=== PATIENT | male | born 1960 | race Caucasian/White ===

== ENCOUNTER 2019-04-18 05:53 | Emergency (ER) | payer MEDICARE, OTHER ==
[~2019-04-18] VITALS: Ht 152.4 cm; Wt 61.2 kg
[~2019-04-18 05:53] MED LIST: ACET-1156 GT; ASCO500T11 GT; CARV6.2551 PO; CRAN425C2 GT; FER300LQ GT; FLUC200T50 IVB; LACT1CAP14 GT; LEVO50TA7 GT; MERO1INJ IV; MID10T GT; MULTTAB61 GT; ONDA-144 GT; POLY33504 GT; SENN8.6C GT; TAMS0.4C36 GT; TRAM50TA2 PO; ZINC220C8 GT; [UNRECOGNIZED DRUG - OTHER] IV
[2019-04-18] MEDS ORDERED: SODIUM CHLORIDE 0.9% 1,000 ML IV ONE (07:07)
[2019-04-18] MEDS ORDERED: SODIUM CHLORIDE 0.9% 500 ML IVB ONE (07:07)
[2019-04-18 07:27] LABS: Urine Bacteria FEW /hpf (None Seen); Urine Blood 2+ /uL (Negative); Urine Mucus FEW (None Seen); Urine Specific Gravity 1.015 (1.001-1.035); Urine WBC 312 /hpf (0 - 3); Urine WBC Clumps PRESENT /hpf (None Seen)
[2019-04-18 07:34] LABS: Basophils # (auto) 0.1 uL; Basophils % (auto) 0.9 % (0.0-2.0); Eosinophils # (auto) 0.8 uL; Eosinophils % (auto) 8.3 % (0.0-7.0); Hematocrit 37.9 % (41.0-53.0); Hemoglobin 12.4 g/dL (13.5-17.5); Lymphocytes # (auto) 1.3 uL; Lymphocytes % (auto) 13.4 % (10.0-50.0); Mean Corpuscular Hgb Conc. 32.6 g/dL (32.0-36.0); Mean Corpuscular Volume 88.9 fL (80.0-100.0); Monocytes # (auto) 0.9 uL; Monocytes % (auto) 8.9 % (0.0-12.0); Neutrophils # (auto) 6.6 uL; Neutrophils % (auto) 68.5 % (37.0-80.0); Nucleated Red Blood Cells % 0.1 %; Platelet Count (auto) 136 10^3/uL (140-450); Red Blood Cells 4.27 10^6/uL (4.5-5.90); Red Cell Distribution Width 16.6 % (11.8-14.3); White Blood Cell 9.7 10^3/uL (4.4-10.8)
[2019-04-18 07:48] LABS: Albumin 2.2 g/dL (3.4-5.0); BUN/Creatinine Ratio 25.7; Magnesium 2.8 mg/dL (1.6-2.6); Potassium 4.2 mmol/L (3.5-5.1)
[2019-04-18 07:51] LABS: Bilirubin, Total 0.3 mg/dL (0.2-1.0); Total Protein 7.4 g/dL (6.4-8.2)
[2019-04-18] MEDS ORDERED: LIDOCAINE 2%HCL (LOCAL ANESTH.) INJ 20ML MDV ONE (09:11)
[2019-04-18] MEDS ORDERED: GASTROGRAFIN 30 ML SOL ONE (10:58)
[2019-04-18] MEDS ORDERED: cefTRIAXone 1GM/50ML D5W 50 ML IV ONE (15:30)
[2019-04-18 18:49] VITALS: BP 94/53
== END 2019-04-18 22:54 | disposition home or self-care (01) ==
LOC: EDBD 05:53 → ER 05:53 → EDUNIT# 05:53 → ER 22:54
DX: K94.23 Gastrostomy malfunction (principal); N39.0 Urinary tract infection, site not specified; E86.0 Dehydration; E43 Unspecified severe protein-calorie malnutrition; K59.01 Slow transit constipation; N20.0 Calculus of kidney; I13.0 Hypertensive heart and chronic kidney disease with heart failure and stage 1 through stage 4 chronic kidney disease, or unspecified chronic kidney disease; E11.22 Type 2 diabetes mellitus with diabetic chronic kidney disease; N18.9 Chronic kidney disease, unspecified; I50.9 Heart failure, unspecified; E07.9 Disorder of thyroid, unspecified; Z79.899 Other long term (current) drug therapy
CPT/HCPCS: 36415; 43762; 71045; 74021; 80053; 81001; 83735; 84443; 85025; 94761; 96365; 99284; J0696; Q9963

== ENCOUNTER 2019-04-21 11:30 | Emergency (ER) | payer MEDICARE, OTHER ==
[~2019-04-21] VITALS: Ht 182.9 cm; Wt 81.6 kg
[2019-04-21] MEDS ORDERED: GASTROGRAFIN 30 ML SOL ONE (12:46)
[2019-04-21 14:06] VITALS: BP 80/43
== END 2019-04-21 15:44 | disposition home or self-care (01) ==
LOC: EDBD 11:30 → ER 11:30
DX: Z43.1 Encounter for attention to gastrostomy (principal); I50.9 Heart failure, unspecified; E11.9 Type 2 diabetes mellitus without complications; E07.9 Disorder of thyroid, unspecified
CPT/HCPCS: 43762; 74021; 99284; Q9963

== ENCOUNTER 2019-04-25 23:40 | Inpatient (IN) | payer MEDICARE, OTHER ==
[~2019-04-25] VITALS: Ht 182.9 cm; Wt 80.0 kg
[2019-04-26] VITALS (21 sets, daily range): BP systolic 64–93; BP diastolic 35–57
[2019-04-26 01:30] LABS: Basophils # (auto) 0.1 uL; Basophils % (auto) 0.5 % (0.0-2.0); Eosinophils # (auto) 0.2 uL; Eosinophils % (auto) 1.1 % (0.0-7.0); Hematocrit 34.2 % (41.0-53.0); Hemoglobin 10.7 g/dL (13.5-17.5); Lymphocytes # (auto) 1.3 uL; Lymphocytes % (auto) 7.9 % (10.0-50.0); Mean Corpuscular Hemoglobin 28.1 pg (28.0-32.0); Mean Corpuscular Hgb Conc. 31.4 g/dL (32.0-36.0); Mean Corpuscular Volume 89.6 fL (80.0-100.0); Monocytes # (auto) 0.9 uL; Monocytes % (auto) 5.6 % (0.0-12.0); Neutrophils # (auto) 13.5 uL; Neutrophils % (auto) 84.9 % (37.0-80.0); Nucleated Red Blood Cells % 0.1 %; Platelet Count (auto) 149 10^3/uL (140-450); Red Blood Cells 3.82 10^6/uL (4.5-5.90); Red Cell Distribution Width 16.9 % (11.8-14.3); White Blood Cell 15.9 10^3/uL (4.4-10.8)
[2019-04-26] MEDS ORDERED: SODIUM CHLORIDE 0.9% 2,000 ML IV ONE (01:45)
[2019-04-26 01:50] LABS: Potassium 3.5 mmol/L (3.5-5.1)
[2019-04-26 01:51] LABS: Albumin 1.8 g/dL (3.4-5.0); BUN/Creatinine Ratio 20.5; Calcium 7.1 mg/dL (8.5-10.1)
[2019-04-26 01:54] LABS: Bilirubin, Total 0.4 mg/dL (0.2-1.0); Total Protein 6.7 g/dL (6.4-8.2)
[2019-04-26 03:21] LABS: Urine Bacteria MANY /hpf (None Seen); Urine Blood 2+ /uL (Negative); Urine Hyaline Cast MANY /lpf (0 - 2); Urine Mucus FEW (None Seen); Urine Specific Gravity 1.014 (1.001-1.035); Urine WBC 552 /hpf (0 - 3); Urine WBC Clumps PRESENT /hpf (None Seen)
[2019-04-26] MEDS ORDERED: IOHEXOL 300 MG/ML 100ML BOTTLE IJ ONE (03:48)
[2019-04-26] MEDS ORDERED: cefTRIAXone 1GM/50ML D5W 50 ML IV ONE (06:00)
[2019-04-26 06:56] LABS: BUN/Creatinine Ratio 22.1; Calcium 7.5 mg/dL (8.5-10.1)
[2019-04-26] MEDS: HYDROCORTONE 1% TOPICAL CREAM 30 GM TUBE TOP ONE ×2 (09:23→09:50)
[2019-04-26] MEDS ORDERED: ONDANSETRON HCL 4 MG/2 ML VIAL IV PRN (10:15)
[2019-04-26] MEDS ORDERED: NITROGLYCERIN 0.4 MG SL TAB SL PRN (10:15)
[2019-04-26] MEDS ORDERED: PIPERACILLIN-TAZOB 3.375GM 100 ML IV ONE (10:15)
[2019-04-26] MEDS ORDERED: MORPHINE SULF INJ 2 MG/ML SYRINGE 1ML IV PRN (10:15)
[2019-04-26] MEDS ORDERED: MORPHINE SULFATE 4 MG/ML SYR/VIAL IV PRN (10:15)
[2019-04-26] MEDS ORDERED: DEXTROSE (50%) 50ML SYRG IV PRN (10:15)
[2019-04-26] MEDS ORDERED: LORazepam 2MG/ML-1ML VIAL IV PRN (10:15)
[2019-04-26] MEDS ORDERED: traMADol HCL 50 MG TAB PEG PRN (10:15)
[2019-04-26] MEDS ORDERED: ACETAMINOPHEN 650 mg PER 20 mL UD GT PRN (10:15)
[2019-04-26] MEDS ORDERED: MIDODRINE HCL 10 MG TAB GT ONE (10:30)
[2019-04-26] MEDS ORDERED: SODIUM CHLORIDE 0.9% 1,000 ML IV ONE (10:30)
[2019-04-26] MEDS ORDERED: MIDODRINE HCL 10 MG TAB GT PRN (10:45)
[2019-04-26] MEDS: FREE WATER GT SCH ×2 (10:52→19:51)
[2019-04-26] MEDS: PIPERACILLIN-TAZOB 3.375GM 100 ML IV SCH ×2 (10:52→19:51)
[2019-04-26 10:57] LABS: Amylase 41 U/L (25-115); Lipase 110 U/L (73-393)
[2019-04-26] MEDS ORDERED: SOD CHL 0.45% 1,000 ML IV ONE (11:00)
[2019-04-26] MEDS: ASCORBIC ACID 500 MG TAB GT SCH (11:13)
[2019-04-26] MEDS: ENOXAPARIN SOD 40 MG/0.4 ML SYRINGE SC SCH (11:38)
[2019-04-26] MEDS: ACCU-CHEK COMFORT CURVE STRIP VI SCH ×2 (13:42→19:56)
[2019-04-26] MEDS: D5W/SOD CHL 0.45% 1,000 ML IV SCH ×2 (16:24→19:51)
--- NOTE | 2019-04-26 18:20 | NUR ---
Pt being admitted to ICU: received patient at 1820 OMAR MELENDEZ admitted to ICU via gurney on alarm security or surveillance monitor, and room air. Patient transfered to bed, connected to ICU monitoring, and weighed by bedscale. Patient oriented to Santa grullon RN, unit, room, bed, and unit policies regarding patient care and visiting hours. All questions and concerns addressed, patient verbalized understanding. Neuro: pupils are equal and brisk, follows simple commands Resp: room air, sats in >94%, lungs clear. Musculo: gets up to wheelchair with help at [facility] per report GI: patient has peg tube for tube feedings. :suprapubic catheter BM: UNKOWN
--- NOTE | 2019-04-26 19:00 | NUR ---
OPENING NOTE ASSUMED CARE OF PATIENT AT THIS TIME. REPORT RECEIVED FROM DAY SHIFT RN. POC REVIEWED. HEAD TO TOE ASSESSMENT COMPLETE, SEE INTERVENTION SPREADSHEET FOR COMPLETE DETAILS. RECEIVED PT ORIENTED TO SELF AND SITUATION. RECEIVED PT WITH SUPRAPUBIC CATHETER DRAINING TO GARRISON. RECEIVED PT WITH RIGHT WRIST IV, BENIGN. RECEIVED PT WITH PEG TUBE, CLAMPED. PT DENIES PAIN. RECEIVED PT WITH WOUND TO COCCYX. BED LOCKED AND IN LOWEST POSITION, SAFETY PRECAUTIONS IN PLACE, CALL LIGHT WITHIN REACH. WILL MONITOR PT CAREFULLY.
--- NOTE | 2019-04-26 19:21 | NUR ---
Report given to LAURA Olivares.
--- NOTE | 2019-04-26 22:45 | NUR ---
SISTER OF PATIENT, SIMONA, CALLED FOR UPDATE. ALL QUESTIONS ADDRESSED. PASSWORD CREATED, CONTACT INFORMATION OBTAINED.
[2019-04-27] VITALS (78 sets, daily range): BP systolic 59–120; BP diastolic 27–74
[2019-04-27] MEDS: PIPERACILLIN-TAZOB 3.375GM 100 ML IV SCH ×5 (00:42→23:44)
[2019-04-27] MEDS: D5W/SOD CHL 0.45% 1,000 ML IV SCH ×4 (03:00→20:59)
--- NOTE | 2019-04-27 03:43 | NUR ---
UNABLE TO OBTAIN LABS AT THIS TIME. PT WILL NOT ALLOW MENTAL HEALTH SOCIAL WORKER TO DRAW. WILL COME BACK LATER IN THE MORNING TO REASSESS.
[2019-04-27] MEDS: FREE WATER GT SCH ×5 (06:21→23:44)
[2019-04-27] MEDS: ACCU-CHEK COMFORT CURVE STRIP VI SCH ×5 (06:22→23:44)
[2019-04-27] MEDS: LEVOTHYROXINE SODIUM 50 MCG TAB GT SCH (06:22)
--- NOTE | 2019-04-27 09:45 | NUR ---
POOR ORAL HYGIENE PATIENT NOTED TO HAVE THICK, BROWN, HARDENED LAYERS OF SECRETIONS NOTED THROUGHOUT PALATE, TONGUE AND SOME TEETH. ORAL CARE REQUIRED FREQUENTLY. PT MOVED HEAD AND DOES NOT ALLOW PROPER CLEANING HE CLOSES HIS MOUTH. WILL CONTINUE TO ATTEMPT FREQUENTLY.
[2019-04-27] MEDS: ENOXAPARIN SOD 40 MG/0.4 ML SYRINGE SC SCH ×2 (10:00→11:17)
--- NOTE | 2019-04-27 10:19 | NUR ---
Midline Placement: No indication for PICC line insertion identified at this time. Midline placement appropriate. 18g/10cm midline inserted via right brachial vein using Ultrasound. Sterile technique utilized. Blood return obtained from lumen and flushed easily with NS using proper technique. Midline secured with saline lock; biodisc and occlusive dressing applied. Primary RN notified. Midline lot #[id number]
--- NOTE | 2019-04-27 10:54 | NUR ---
NUTRITION CONSULT/ASSESSMENT NOTES Please refer to link notes of nutrition screen form filed under the intervention section of the plan of care for further details. Est. Needs: 2050 kcal to 2400 kcal (25-30 kcal/kgBW), 68 gms to 82 gms pro (1.0-1.2 gms/kgBW). Will continue to monitor pertinent labs and reassess nutrient need prn Thank you for this consult. Addendum: 04/27/19 at [address] Amended: Links added.
[2019-04-27 11:04] LABS: Basophils # (auto) 0.1 uL; Basophils % (auto) 0.8 % (0.0-2.0); Eosinophils # (auto) 0.4 uL; Eosinophils % (auto) 3.9 % (0.0-7.0); Hematocrit 33.9 % (41.0-53.0); Hemoglobin 10.7 g/dL (13.5-17.5); Lymphocytes # (auto) 1.6 uL; Lymphocytes % (auto) 15.7 % (10.0-50.0); Mean Corpuscular Hemoglobin 28.4 pg (28.0-32.0); Mean Corpuscular Hgb Conc. 31.4 g/dL (32.0-36.0); Mean Corpuscular Volume 90.5 fL (80.0-100.0); Monocytes # (auto) 0.4 uL; Monocytes % (auto) 3.9 % (0.0-12.0); Neutrophils # (auto) 7.7 uL; Neutrophils % (auto) 75.7 % (37.0-80.0); Platelet Count (auto) 163 10^3/uL (140-450); Red Blood Cells 3.75 10^6/uL (4.5-5.90); Red Cell Distribution Width 16.7 % (11.8-14.3); White Blood Cell 10.2 10^3/uL (4.4-10.8)
[2019-04-27 11:15] LABS: INR 1.05 (0.9-1.15); Partial Thromboplastin Time 25.6 sec (23.64-32.05)
[2019-04-27] MEDS: MULTIPLE VITAMIN ORAL 15 ML Soln GT SCH (11:16)
[2019-04-27] MEDS: ASCORBIC ACID 500 MG TAB GT SCH (11:17)
[2019-04-27 11:29] LABS: Albumin 1.7 g/dL (3.4-5.0); BUN/Creatinine Ratio 15.2; Bilirubin, Total 0.3 mg/dL (0.2-1.0); Calcium 8.2 mg/dL (8.5-10.1); Potassium 4.5 mmol/L (3.5-5.1); Total Protein 6.4 g/dL (6.4-8.2)
--- NOTE | 2019-04-27 13:00 | NUR ---
Cooling Measures applied. Patient currently has temp of 99.8 , cooling measures in place.
--- NOTE | 2019-04-27 13:00 | NUR ---
HYPOTENSION PATIENTS BP TRENDING FROM 60-80'S DESPITE PO PRN MEDIATION ORDERED. HR INCREASING TO HIGH 120'S. PT BECOMING SLIGHTLY RESTLESS. PAGED TO NOTIFY. NEW ORDERS IN PLACE. Addendum: 04/27/19 at 1707 by Mildred Pinto RN ALSO NOTIFIED OF POSITIVE BLOOD CULTURES.
[2019-04-27] MEDS ORDERED: D5W 5% 1,000 ML IV ONE (14:15)
--- NOTE | 2019-04-27 14:24 | NUR ---
Assessment Pt is a 58 yr old male. No family were bedside. Pt's nurse, Mildred, stated that pt has cerebral palsy and can't communicate very well. Pt's nurse stated that pt lived at [facility] prior to admit and that pt's has a sister as a contact center engineer. SW attempted to contact pt's sister, Deborah, using contact information in [employer] but it was the wrong number. SW will assess for pt's needs closer to d/c. Addendum: 04/27/19 at 1427 by BISHNU SANTACRUZ Amended: Links added.
--- NOTE | 2019-04-27 14:30 | NUR ---
UROLOGY CONSULT CAR LUBRICATOR AT BEDSIDE. PER CAR LUBRICATOR ROUNDS TO BE MADE IN A.M AND SUPRAPUBIC CATHETER TO BE CHANGED. FURTHER PROCEDURES TO BE DONE OUTPATIENT AT THIS TIME.
[2019-04-27] MEDS: NOREPINEPHRINE 8 MG/250ML KIT 250 ML IV SCH (14:34)
[2019-04-27] MEDS ORDERED: NOREPINEPHRINE 8 MG/250ML KIT 250 ML IV ONE (14:34)
--- NOTE | 2019-04-27 15:22 | NUR ---
ELIMINATION PATIENT HAD A LARGE, BROWN, PASTEY BM. SKIN CLEANSED, COCCXY CONTINUES PINK BUT BLANCHABLE WITH SMALL SKIN TEAR. ZGUARD APPLIED. PATIENT TURNED TO OFF LOAD PRESSURE FROM SACRUM AND HEELS. PT TOLERATED WELL.
--- NOTE | 2019-04-27 15:30 | NUR ---
WOUND CARE NOTE: Wound care consult received from nursing. Patient is a 58 yo male admitted from a SNF for UTI with sepsis. Patient with a history of cerebral palsy, chronic hydronephrosis and nephrolithiasis, hypothyroidism, dyslipidemia and anemia. Patient is alert and denies pain. Last Bryson score is 13. Reviewed photo with bedside RN, Mildred. Patient with small skin tear in gluteal cleft, measure 1.5x0.5cm. No other open wounds noted. RECOMMENDATIONS: Dietary consult; turn q2hrs; Nursing to cleanse gluteal cleft with wound cleanser and pat dry, apply ZGUARD BID/PRN and cover with OPTIFOAM GENTLE; wound care team to follow. Addendum: 04/27/19 at 1900 by NAJMA EDUARDO RN Amended: Links added.
--- NOTE | 2019-04-27 16:00 | NUR ---
FAMILY SISTER DIPAK AT BEDSIDE. SISTER UPDATED ON PATIENTS STATUS. QUESTIONS AND CONCERNS ADDRESSED. SISTER EXPRESSING CONCERN RE: CODE STATUS. UPDATED SISTER ON MEASURES THAT ARE TAKEN. PER DIPAK, SHE IS CONSIDERING MAKING PATIENT A MODIFIED DNR WITH NO CPR/ NO INTUBATION. SISTER STATING SHE WOULD WANT TO SPEAK TO MD TOMORROW TO MAKE FURTHER DECISIONS. PT TO REMAIN FULL CODE AT THIS TIME.
--- NOTE | 2019-04-27 17:28 | NUR ---
BRASS BUFFER DR. WERNER CALLED, UPDATED ON PATIENTS STATUS. MD NOTIFIED OF TACHYCARDIA DURING HYPOTENSIONS NOTED EARLIER, MD NOTIFIED PATIENT IS CURRENTLY SR 70-80'S WITH LEVOPHED AT 10MCG. MD VERBALIZED UNDERSTANDING. NEW ORDERS IN PLACE.
--- NOTE | 2019-04-27 18:50 | NUR ---
Patient calm and relaxed, watching tv on 2l/min nc, nonlabored breathing. Patient remains on Levophed gtt, current bp 108/42 hr paced at 70. Call light at reach, bed in lowest position. Report to be given to on coming nurse.
--- NOTE | 2019-04-27 19:00 | NUR ---
OPENING NOTE ASSUMED CARE OF PATIENT AT THIS TIME. REPORT RECEIVED FROM DAY SHIFT RN. POC REVIEWED. HEAD TO TOE ASSESSMENT COMPLETE, SEE INTERVENTION SPREADSHEET FOR COMPLETE DETAILS. RECEIVED PT ORIENTED TO SELF AND SITUATION. PT ON LEVO AT 12 MCG. RECEIVED PT WITH SUPRAPUBIC CATHETER DRAINING TO GARRISON. IV SITES BENIGN. RECEIVED PT WITH PEG TUBE, CLAMPED. PT DENIES PAIN. RECEIVED PT WITH WOUND TO COCCYX. BED LOCKED AND IN LOWEST POSITION, SAFETY PRECAUTIONS IN PLACE, CALL LIGHT WITHIN REACH. WILL MONITOR PT CAREFULLY.
--- NOTE | 2019-04-27 20:03 | NUR ---
PROVIDER AT BEDSIDE. NO NEW ORDERS RECEIVED AT THIS TIME.
--- NOTE | 2019-04-27 22:10 | NUR ---
FAMILY SISTER OF PATIENT CALLED FOR UPDATE. ALL QUESTIONS ADDRESSED AT THIS TIME.
[2019-04-28] VITALS (92 sets, daily range): BP systolic 83–128; BP diastolic 45–94
[2019-04-28] MEDS: PIPERACILLIN-TAZOB 3.375GM 100 ML IV SCH ×3 (06:18→17:30)
[2019-04-28] MEDS: FREE WATER GT SCH ×3 (06:18→17:31)
[2019-04-28] MEDS: ACCU-CHEK COMFORT CURVE STRIP VI SCH (06:18)
[2019-04-28] MEDS: LEVOTHYROXINE SODIUM 50 MCG TAB GT SCH (06:18)
--- NOTE | 2019-04-28 07:00 | NUR ---
LAB UNABLE TO OBTAIN BLOOD DRAW, NOC NURSE ATTEMPTED TO DRAW FROM MIDLINE BUT WAS UNSUCCESSFUL. PAYABLE PROCESSOR TO SEND ANOTHER PERSON TO TRY.
--- NOTE | 2019-04-28 07:33 | NUR ---
Opening Shift Note Assumed care of patient, awake and alert. No S/S of distress/SOB or pain. Jarvis intact, patent and draining bag hung below bladder. SCDs on bilateral lower extremities. ELSY and RH IVs patent and flushed. Instructed on POC and to call for assist PRN, will continue to monitor for changes. See interventions/physical assessment.
[2019-04-28 08:18] LABS: Albumin 1.5 g/dL (3.4-5.0); BUN/Creatinine Ratio 11.7; Calcium 7.3 mg/dL (8.5-10.1)
[2019-04-28 08:19] LABS: Bilirubin, Total 0.5 mg/dL (0.2-1.0); Total Protein 5.8 g/dL (6.4-8.2)
[2019-04-28] MEDS: ENOXAPARIN SOD 40 MG/0.4 ML SYRINGE SC SCH (10:00)
[2019-04-28] MEDS: MULTIPLE VITAMIN ORAL 15 ML Soln GT SCH (10:00)
[2019-04-28] MEDS: ASCORBIC ACID 500 MG TAB GT SCH (10:00)
[2019-04-28] MEDS: Glucerna 1.2 Cal 1Liter BOTTLE GT SCH (10:02)
--- NOTE | 2019-04-28 10:15 | NUR ---
Feedings Started Peg tube site intact, asymptomatic, no redness or drainage noted, optifoam in place. Peg tube placement verified via auscultation. No gastric residual noted. Glucerna 1.2cal feedings started at 15ml/hr via peg tube. Aspiration precautions in place, will continue to monitor and advance feeding as tolerated.
[2019-04-28] MEDS ORDERED: POTASSIUM EFFERVESENT TAB 25 MEQ GT ONE (12:45)
[2019-04-28] MEDS: D5W/SOD CHL 0.45% 1,000 ML IV SCH ×2 (13:30→17:34)
--- NOTE | 2019-04-28 13:36 | NUR ---
FEEDINGS TOLERATED WELL NO GASTRIC RESIDUAL NOTED DURING ASPIRATION. TF INCREASED TO 25ML/HR. ASPIRATION PRECAUTIONS REMAINS IN PLACE.
[2019-04-28] MEDS: NOREPINEPHRINE 8 MG/250ML KIT 250 ML IV SCH (14:34)
--- NOTE | 2019-04-28 15:00 | NUR ---
Family updated on pt status Family of OMAR MELENDEZ updated on patient's status and condition. All questions and concerns addressed. Sister Ciarra, at bedside verbalized understanding.
--- NOTE | 2019-04-28 16:08 | NUR ---
CORPORATE ASSOCIATE ATTORNEY AWARE OF CONSULT. NEW ORDERS IN PLACE. TO SEE PATIENT IN A.M.
--- NOTE | 2019-04-28 16:26 | NUR ---
SCHOOL DIRECTOR AT BEDSIDE MD UPDATED ON PATIENTS STATUS. NEW ORDERS IN PLACE.
[2019-04-28] MEDS ORDERED: VANCOMYCIN PER PHARMACY 0 MG IV SCH (16:30)
[2019-04-28 16:54] LABS: Protein, Urine 19.6 mg/dL (0.0-11.9)
--- NOTE | 2019-04-28 17:35 | NUR ---
IV removal IV DC'd with sterile technique, catheter fully intact. Pressure dressing applied to site. Patient tolerated procedure well.
--- NOTE | 2019-04-28 17:36 | NUR ---
TUBE FEEDINGS TOLERATED 5ML GASTRIC RESIDUAL ASPIRATED. GLUCERNA INCREASED TO 50ML/HR VIA PEG TUBE. ASPIRATION PRECAUTIONS IN PLACE.
[2019-04-28] MEDS ORDERED: POTASSIUM EFFERVESENT TAB 25 MEQ PO ONE (18:00)
--- NOTE | 2019-04-28 20:00 | NUR ---
Assumed care, full assessment done; see interventions. Increased feedings to goal rate of 70 ml/hr, 10 ml residuals noted. Oral care and repositioning done. Vital signs stable.
--- NOTE | 2019-04-28 22:00 | NUR ---
IV start attempt x 2, patient very restless and would not sit still despite education regarding the need for another IV. Patient continues to shake head and resist. Will attempt again when patient is more calm. Mid line remains patent and intact.
[2019-04-28] MEDS: VANCOMYCIN 1GM/250ML 250 ML IV SCH (22:40)
[2019-04-29] VITALS (71 sets, daily range): BP systolic 81–170; BP diastolic 39–97
[2019-04-29] MEDS: PIPERACILLIN-TAZOB 3.375GM 100 ML IV SCH ×5 (00:17→23:59)
[2019-04-29] MEDS: FREE WATER GT SCH ×4 (00:17→09:00)
[2019-04-29] MEDS: D5W/SOD CHL 0.45% 1,000 ML IV SCH ×2 (03:00→10:48)
--- NOTE | 2019-04-29 03:00 | NUR ---
Attempted to stop levophed gtt, after approx. 1 hour, SBP dropping to low 80s and sustaining. Restarted per orders, see IV spreadsheet.
[2019-04-29 04:42] LABS: Albumin 1.5 g/dL (3.4-5.0); Calcium 7.3 mg/dL (8.5-10.1); Potassium 3.5 mmol/L (3.5-5.1)
[2019-04-29 04:46] LABS: BUN/Creatinine Ratio 10.4; Bilirubin, Total 0.3 mg/dL (0.2-1.0); Phosphorus 2.9 mg/dL (2.5-4.90); Total Protein 5.9 g/dL (6.4-8.2)
[2019-04-29] MEDS: LEVOTHYROXINE SODIUM 50 MCG TAB GT SCH (06:16)
--- NOTE | 2019-04-29 07:35 | NUR ---
ASSESS- PT. LYING IN BED AWAKE, ALERT, ORIENTED TO SELF AND PLACE. FOLLOWS SIMPLE COMMANDS. SPEECH UNCLEAR AT TIMES, GARBLED, CAN UNDERSTAND YES/NO WHEN PT. STATES IT. NO PAIN OR DISCOMFORT. ON R/A. LUNGS CLEAR HAYDEE. INSPIRATORY AND EXPIRATORY. NO SOB. O2 SATS 98%. ABD. SOFT, FLAT, NON-TENDER. BOWEL SOUNDS ALL FOUR QUADRANTS. NO EMESIS. PEG TO ABD. INTACT WITH DSG. D/I WITH GLUCERNA AT 70 CC/HR. SUPRAPUBIC CATHETER TO GRAVITY WITH CLEAR YELLOW URINE. RADIAL PULSES STRONG, PALPABLE HAYDEE. DORSALIS PEDAL PULSES STRONG, PALPABLE HAYDEE. NO EDEMA. SCD'S HAYDEE. LE. MID-LINE ELSY INTACT. RASH ON BACK. OPEN WOUND TO COCCYX WITH OPTIFOAM DSG. D/I. LEVOPHED GTT. AT 2 MCG. TO KEEP SBP>90. PACED AT 70.
--- NOTE | 2019-04-29 09:00 | NUR ---
DR. VEGA Provider/Hospitalist at bedside. GAVE UPDATE ON PT.
--- NOTE | 2019-04-29 10:00 | NUR ---
NO EMESIS. NO RESIDUAL FROM TF. TOLERATING GLUCERNA AT 70 CC/HR.
[2019-04-29] MEDS: ASCORBIC ACID 500 MG TAB GT SCH (10:06)
[2019-04-29] MEDS: ENOXAPARIN SOD 40 MG/0.4 ML SYRINGE SC SCH (10:06)
[2019-04-29] MEDS: MULTIPLE VITAMIN ORAL 15 ML Soln GT SCH (10:07)
[2019-04-29] MEDS: Glucerna 1.2 Cal 1Liter BOTTLE GT SCH (10:20)
[2019-04-29] MEDS: VANCOMYCIN 1GM/250ML 250 ML IV SCH (10:55)
--- NOTE | 2019-04-29 11:02 | NUR ---
DR. WONG Provider/Hospitalist at bedside. UPDATE GIVEN ON PT. NEW ORDERS RECEIVED.
[2019-04-29] MEDS ORDERED: ALBUMIN 25% 100 ML IV ONE (11:15)
--- NOTE | 2019-04-29 11:15 | NUR ---
DR. RAMEY Provider/Hospitalist at bedside. UPDATE GIVEN ON PT. NEW ORDERS RECEIVED.
--- NOTE | 2019-04-29 11:20 | NUR ---
SBP 110'S TO UPPER 100'S. TITRATED LEVOPHED GTT. OFF. GAVE ALBUMIN 25%-25 GM. 100 CC IV TIMES ONE DOSE PER DR. WONG.
[2019-04-29] MEDS: SODIUM BICARBONATE 50ML VIAL 50 ML, POTASSIUM CHLORIDE 20 MEQ in D5W 5% 1,000 ML IV SCH ×2 (12:18→22:40)
--- NOTE | 2019-04-29 13:15 | NUR ---
SBP 87 TO 90'S. CONTINUING TO MONITOR BP. PACED 100%, HR-70.
--- NOTE | 2019-04-29 13:20 | NUR ---
PT. CAME BACK POSITIVE FOR MRSA URINE. PLACED ON CONTACT PRECAUTIONS.
--- NOTE | 2019-04-29 13:47 | NUR ---
DR. WONG IN THE ICU. INFORMED OF PT'S. URC WITH MRSA, SENSITIVITY REPORT ON RECORD. NEW ORDERS RECEIVED, ANTIBIOTICS CHANGED.
[2019-04-29] MEDS: HYDROCORTISONE SOD SUCC 100 MG/2ML INJ VIAL IV SCH ×2 (13:51→22:40)
--- NOTE | 2019-04-29 14:06 | NUR ---
Nutrition Follow-up Notes Wt.: 72.5 kg Pt`s awake but speech very unclear with RN at bedside. per RN pt tolerating feeds very well no residue noted. pt is currently NPO on EN support with Glucerna @ 70 ml.hr providing 2016 kcals and 100 gm proteins . pt with adequate EN support as it meets 84-98% kcals and 121-1485 proteins Est. Needs: 2050 kcal to 2400 kcal (25-30 kcal/kgBW), 68 gms to 82 gms pro (1.0-1.2 gms/kgBW). Will continue to monitor pertinent labs and reassess nutrient need prn Labs: CA 7.3 L, NA 155 H, ALB 1.5 L. Skin: Bryson scale 16 mod risk, pt with skin tear on coccyx per director of clinical education. GI: Pt had 1 BM yesterday per director of clinical education. PES: Altered nutrition related lab values r/t current/chronic medical condition aeb hypernatremia, hyperchloremia, elev. renal labs, hypocalcemia and severe hypoalbuminemia Increased nutrient needs r.t current chronic medical condition aeb Urinary tract infection, Dehydration,Cerebral palsy, severe hypoalbuminemia, NPO with PEG tube Will continue to monitor NPO status, EN tolerance, skin status, pertinent labs and weight trend. F/u in 2 to 3 days. Rec.: 1.) If Albumin continues trending down with improved renal labs, consider Prostat 1 pkt BID. 2.) Consider daily MVI with minerals and Asc acid 500 mgs BID. 3.) Refer pt's family to CDE/RD for further nutrition educ. and weight monitoring upon discharge. 4.) Continue current plan of care.
[2019-04-29] MEDS: NOREPINEPHRINE 8 MG/250ML KIT 250 ML IV SCH (14:34)
[2019-04-29] MEDS: LINEZOLID 600MG/300ML 300 ML IV SCH (15:23)
--- NOTE | 2019-04-29 16:00 | NUR ---
PT. HAD VERY LG. BROWN LOOSE/LIQUID STOOL. KAMRAN CARE DONE AND LINENS AND GOWN CHANGED. PT. TOLERATED WELL.
--- NOTE | 2019-04-29 16:45 | NUR ---
Family updated on pt status Family of AMILCARSIGIFREDOSYLWIAOMAR updated on patient's status and condition. All questions and concerns addressed. SISTER verbalized understanding. VISITING AT THE BS.
--- NOTE | 2019-04-29 17:25 | NUR ---
DR. WERNER Provider/Hospitalist at bedside.
--- NOTE | 2019-04-29 18:15 | NUR ---
Called/paged Dr. VEGA called re: . Waiting for call back. Continue care.
--- NOTE | 2019-04-29 19:45 | NUR ---
PT HAS TRANSFER ORDERS TO TELE. RM [id number]
--- NOTE | 2019-04-29 20:00 | NUR ---
ELIMINATION PT HAD VERY LARGE LIQUID BROWN STOOL. CLEANSED PT OF STOOL AND LINEN CHANGED. PT TOLERATED WELL
--- NOTE | 2019-04-29 21:20 | NUR ---
REPORT GIVEN TO LAURA STOVALL TO ASSUME CARE OF PT.
[2019-04-29 21:53] LABS: Phosphorus 3.1 mg/dL (2.5-4.90); Uric Acid 2.6 mg/dL (3.5-7.2)
[2019-04-30] MEDS: LINEZOLID 600MG/300ML 300 ML IV SCH ×2 (04:47→18:09)
[2019-04-30] MEDS: HYDROCORTISONE SOD SUCC 100 MG/2ML INJ VIAL IV SCH ×3 (05:58→21:49)
[2019-04-30 06:03] VITALS: BP 109/64
[2019-04-30] MEDS: LEVOTHYROXINE SODIUM 50 MCG TAB GT SCH (06:59)
[2019-04-30] MEDS: PIPERACILLIN-TAZOB 3.375GM 100 ML IV SCH ×3 (06:59→18:09)
[2019-04-30 09:00] VITALS: BP 109/62
[2019-04-30] MEDS: SODIUM BICARBONATE 50ML VIAL 50 ML, POTASSIUM CHLORIDE 20 MEQ in D5W 5% 1,000 ML IV SCH ×3 (10:41→21:26)
[2019-04-30] MEDS: MULTIPLE VITAMIN ORAL 15 ML Soln GT SCH (10:41)
[2019-04-30] MEDS: ASCORBIC ACID 500 MG TAB GT SCH (10:41)
[2019-04-30] MEDS: ENOXAPARIN SOD 40 MG/0.4 ML SYRINGE SC SCH (10:41)
[2019-04-30 13:00] VITALS: BP 107/65
[2019-04-30 13:49] LABS: Urine Bacteria NONE SEEN /hpf (None Seen); Urine Blood 2+ /uL (Negative); Urine Specific Gravity 1.014 (1.001-1.035); Urine WBC 37 /hpf (0 - 3)
[2019-04-30 17:00] VITALS: BP 107/64
--- NOTE | 2019-04-30 19:00 | NUR ---
Opening Shift Note Assumed care of patient, awake and alert. No S/S of distress/SOB or pain. Patient instructed on POC and to call if needs anything. Bed is locked in lowest position with side rails up x2 for safety, will continue to monitor for changes Q1hr and PRN.
--- NOTE | 2019-04-30 20:12 | NUR ---
FREE WATER 200ML OF FREE WATER IN PEG TUBE PER ORDERS.
[2019-04-30 21:54] VITALS: BP 112/67
[2019-05-01] MEDS: LINEZOLID 600MG/300ML 300 ML IV SCH ×2 (04:32→17:11)
[2019-05-01 04:55] VITALS: BP 101/61
[2019-05-01] MEDS: SODIUM BICARBONATE 50ML VIAL 50 ML, POTASSIUM CHLORIDE 20 MEQ in D5W 5% 1,000 ML IV SCH (05:55)
[2019-05-01] MEDS: HYDROCORTISONE SOD SUCC 100 MG/2ML INJ VIAL IV SCH ×3 (06:09→21:41)
[2019-05-01] MEDS: LEVOTHYROXINE SODIUM 50 MCG TAB GT SCH (07:01)
[2019-05-01] MEDS: PIPERACILLIN-TAZOB 3.375GM 100 ML IV SCH ×4 (07:01→18:00)
--- NOTE | 2019-05-01 07:49 | NUR ---
Opening Note Assumed pt care from [facility] nurse. Pt is a/ox3-4; hard to tell with limited communication abilities. Pt is currently sitting upright in bed with no s/s of distress or SOB. Pt is currently on feedings via PEG tube at 70mL/HR. Pt is tolerating well. Discussed POC with pt; pt verbalized understanding. Safety measures maintained with call light within reach, bed in lowest position and side rails up. Will continue to monitor for changes q1hr and prn.
[2019-05-01 09:00] VITALS: BP 119/67
[2019-05-01] MEDS: ASCORBIC ACID 500 MG TAB GT SCH (09:55)
[2019-05-01] MEDS: MULTIPLE VITAMIN ORAL 15 ML Soln GT SCH (09:55)
[2019-05-01] MEDS: ENOXAPARIN SOD 40 MG/0.4 ML SYRINGE SC SCH (09:56)
[2019-05-01] MEDS: D5W 5% IV SCH (10:59)
[2019-05-01] MEDS: SODIUM BICARBONATE IV SCH (10:59)
[2019-05-01] MEDS: POTASSIUM CHLORIDE IV SCH (10:59)
[2019-05-01] MEDS: FREE WATER GT SCH ×4 (10:59→21:41)
[2019-05-01] MEDS: Glucerna 1.2 Cal 1Liter BOTTLE GT SCH (12:01)
[2019-05-01 13:00] VITALS: BP 107/65
--- NOTE | 2019-05-01 14:38 | NUR ---
Nutrition Follow-up Notes Wt.: 73.5 kg Pt`s awake but speech very unclear with RN at bedside. per RN pt tolerating feeds very well no residue noted. pt is currently NPO on EN support with Glucerna @ 70 ml.hr providing 2016 kcals and 100 gm proteins . pt with adequate EN support as it meets 84-98% kcals and 121-1485 proteins Est. Needs: 2050 kcal to 2400 kcal (25-30 kcal/kgBW), 68 gms to 82 gms pro (1.0-1.2 gms/kgBW). Will continue to monitor pertinent labs and reassess nutrient need prn Labs: CA 7.3 L, NA 155 H, ALB 1.5 L. Skin: Bryson scale 16 mod risk, pt with skin tear on coccyx per wide area network engineer. GI: Pt had 2 BM yesterday per wide area network engineer. PES: Altered nutrition related lab values r/t current/chronic medical condition aeb hypernatremia, hyperchloremia, elev. renal labs, hypocalcemia and severe hypoalbuminemia Increased nutrient needs r.t current chronic medical condition aeb Urinary tract infection, Dehydration,Cerebral palsy, severe hypoalbuminemia, NPO with PEG tube Will continue to monitor NPO status, EN tolerance, skin status, pertinent labs and weight trend. F/u in 2 to 3 days. Rec.: 1.) If Albumin continues trending down with improved renal labs, consider Prostat 1 pkt BID. 2.) Consider daily MVI with minerals and Asc acid 500 mgs BID. 3.) Refer pt's family to CDE/RD for further nutrition educ. and weight monitoring upon discharge. 4.) Continue current plan of care.
[2019-05-01 17:00] VITALS: BP 105/65
--- NOTE | 2019-05-01 19:10 | NUR ---
Opening Shift Note Received report from day shift nurseYanet. Assumed care of patient. Pt is awake, alert and orientated x 2. Pt makes eye contact and follows command but doesn't respond verbally. Patient is in a private room. Patient has suprapubic catheter which is patent, draining and bag is below bladder. Patient has PEG tube and pump for PEG tube is on continuous feeding. No S/S of distress/SOB or pain. Instructed on POC and to call for assist PRN, will continue to monitor for changes Q1hr and PRN.
[2019-05-01 21:54] VITALS: BP 108/64
--- NOTE | 2019-05-01 22:00 | NUR ---
PEG HOB 45 degrees. Continuous feeding stopped for 30 min to assess residual. 10ml of residual noted. 200 ml of free water given via peg tube. continuous feeding started up again.
[2019-05-02] MEDS: PIPERACILLIN-TAZOB 3.375GM 100 ML IV SCH ×5 (01:31→23:45)
[2019-05-02] MEDS: FREE WATER GT SCH ×6 (02:03→21:46)
[2019-05-02] MEDS: LINEZOLID 600MG/300ML 300 ML IV SCH ×2 (04:54→17:36)
[2019-05-02 05:00] VITALS: BP 96/61
[2019-05-02] MEDS: HYDROCORTISONE SOD SUCC 100 MG/2ML INJ VIAL IV SCH ×3 (05:35→21:46)
[2019-05-02] MEDS: LEVOTHYROXINE SODIUM 50 MCG TAB GT SCH (06:20)
--- NOTE | 2019-05-02 07:09 | NUR ---
CLOSING NOTES ENDORSED CARE TO DAY SHIFT NURSEVIC.
--- NOTE | 2019-05-02 07:30 | NUR ---
PATIENT RESTING IN BED HIGH FOWLERS. RESPIRATIONS EVEN AND UNLABORED. NO S/S OF DISTRESS NOTED AT THIS TIME. PATIENT HAS SUPRAPUBIC CATHETER WITH GARRISON HANGING BELOW BLADDER, PATENT, DRAINING CLEAR YELLOW URINE. PATIENT HAS PEG TUBE TO MEDIAL ABDOMEN WITH GLUCERNA RUNNING PER EMAR. PATIENT MAINTAINED ON NPO STATUS. BED IN LOWEST LOCKED POSITION WITH CALL LIGHT WITHIN REACH. WILL CONTINUE CARE.
[2019-05-02 09:26] VITALS: BP 130/76
--- NOTE | 2019-05-02 09:30 | NUR ---
GI RESIDUAL ASPIRATED 0MLS OF RESIDUAL.
[2019-05-02] MEDS: ASCORBIC ACID 500 MG TAB GT SCH (10:58)
[2019-05-02] MEDS: MULTIPLE VITAMIN ORAL 15 ML Soln GT SCH (10:59)
[2019-05-02] MEDS: ENOXAPARIN SOD 40 MG/0.4 ML SYRINGE SC SCH (10:59)
[2019-05-02] MEDS: SODIUM BICARBONATE IV SCH (11:00)
[2019-05-02] MEDS: D5W 5% IV SCH (11:00)
[2019-05-02] MEDS: POTASSIUM CHLORIDE IV SCH (11:00)
--- NOTE | 2019-05-02 11:37 | NUR ---
Richardson ARTEAGA AT BEDSIDE. INFORMED OF PATIENT STATUS. WILL FOLLOW THROUGH WITH NEW ORDERS.
[2019-05-02 11:43] LABS: Basophils # (auto) 0 uL; Basophils % (auto) 0.1 % (0.0-2.0); Eosinophils # (auto) 0 uL; Hematocrit 35.7 % (41.0-53.0); Hemoglobin 11.3 g/dL (13.5-17.5); Lymphocytes # (auto) 0.6 uL; Lymphocytes % (auto) 4.8 % (10.0-50.0); Mean Corpuscular Hgb Conc. 31.6 g/dL (32.0-36.0); Mean Corpuscular Volume 88.6 fL (80.0-100.0); Monocytes # (auto) 0.3 uL; Monocytes % (auto) 2.2 % (0.0-12.0); Neutrophils # (auto) 12.4 uL; Neutrophils % (auto) 92.9 % (37.0-80.0); Nucleated Red Blood Cells % 0.3 %; Platelet Count (auto) 236 10^3/uL (140-450); Red Blood Cells 4.03 10^6/uL (4.5-5.90); Red Cell Distribution Width 16.2 % (11.8-14.3); White Blood Cell 13.4 10^3/uL (4.4-10.8)
[2019-05-02 12:12] LABS: Calcium 7.4 mg/dL (8.5-10.1); Potassium 3.6 mmol/L (3.5-5.1)
[2019-05-02 13:00] VITALS: BP 114/66
[2019-05-02 16:48] VITALS: BP 117/67
--- NOTE | 2019-05-02 16:50 | NUR ---
PEG TUBE RESIDUAL: ASPIRATED 5MLS OF RESIDUAL FROM PEG TUBE. CONTINUED GLUCERNA INFUSION PER EMAR.
--- NOTE | 2019-05-02 19:00 | NUR ---
ENDORSED CARE TO LAURA RENDON. UPDATED ON PATIENT STATUS.
--- NOTE | 2019-05-02 19:18 | NUR ---
Opening Shift Note Received report from day shift nurseMason. Assumed care of patient. Pt is awake, alert and orientated x 2. Pt makes eye contact and follows command but doesn't respond verbally. Patient is in a private room. Patient has suprapubic catheter which is patent, draining and bag is below bladder. Patient has PEG tube and pump for PEG tube is on continuous feeding. No S/S of distress/SOB or pain. Instructed on POC and to call for assist PRN, will continue to monitor for changes Q1hr and PRN.
[2019-05-02 22:45] VITALS: BP 124/71
[2019-05-03] MEDS: FREE WATER GT SCH ×6 (02:00→22:11)
[2019-05-03 04:36] VITALS: BP 118/72
[2019-05-03] MEDS: LINEZOLID 600MG/300ML 300 ML IV SCH ×2 (05:18→16:44)
[2019-05-03 06:02] LABS: Basophils # (auto) 0 uL; Basophils % (auto) 0.1 % (0.0-2.0); Eosinophils # (auto) 0 uL; Hematocrit 35.1 % (41.0-53.0); Hemoglobin 11.3 g/dL (13.5-17.5); Lymphocytes # (auto) 0.8 uL; Lymphocytes % (auto) 6.7 % (10.0-50.0); Mean Corpuscular Hemoglobin 28.8 pg (28.0-32.0); Mean Corpuscular Hgb Conc. 32.2 g/dL (32.0-36.0); Mean Corpuscular Volume 89.4 fL (80.0-100.0); Monocytes # (auto) 0.3 uL; Monocytes % (auto) 2.5 % (0.0-12.0); Neutrophils % (auto) 90.7 % (37.0-80.0); Platelet Count (auto) 231 10^3/uL (140-450); Red Blood Cells 3.92 10^6/uL (4.5-5.90); Red Cell Distribution Width 16.4 % (11.8-14.3); White Blood Cell 12.1 10^3/uL (4.4-10.8)
[2019-05-03] MEDS: HYDROCORTISONE SOD SUCC 100 MG/2ML INJ VIAL IV SCH ×3 (06:07→22:11)
[2019-05-03] MEDS: LEVOTHYROXINE SODIUM 50 MCG TAB GT SCH (06:07)
[2019-05-03] MEDS: PIPERACILLIN-TAZOB 3.375GM 100 ML IV SCH ×3 (06:07→18:38)
[2019-05-03 06:43] LABS: Potassium 3.4 mmol/L (3.5-5.1)
[2019-05-03 07:04] LABS: BUN/Creatinine Ratio 26.9; Calcium 7.5 mg/dL (8.5-10.1)
--- NOTE | 2019-05-03 07:11 | NUR ---
CLOSING NOTES ENDORSED CARE TO DAY SHIFT NURSEVIC.
--- NOTE | 2019-05-03 07:30 | NUR ---
OPENING SHIFT NOTE PATIENT RESTING IN BED HIGH FOWLERS. RESPIRATIONS EVEN AND UNLABORED. NO S/S OF DISTRESS NOTED AT THIS TIME. BED IN LOWEST LOCKED POSITION. WITH CALL LIGHT WITHIN REACH. WILL CONTINUE CARE.
[2019-05-03 09:11] VITALS: BP 110/67
[2019-05-03] MEDS: ASCORBIC ACID 500 MG TAB GT SCH (11:05)
[2019-05-03] MEDS: ENOXAPARIN SOD 40 MG/0.4 ML SYRINGE SC SCH (11:06)
[2019-05-03] MEDS: MULTIPLE VITAMIN ORAL 15 ML Soln GT SCH (11:06)
[2019-05-03 12:34] VITALS: BP 123/75
[2019-05-03] MEDS: POTASSIUM CHLORIDE IV SCH ×2 (13:12→22:11)
[2019-05-03] MEDS: SODIUM BICARBONATE IV SCH ×2 (13:12→22:11)
[2019-05-03] MEDS: D5W 5% IV SCH ×2 (13:12→22:11)
--- NOTE | 2019-05-03 13:34 | NUR ---
ORAL CARE PROVIDED.
[2019-05-03] MEDS ORDERED: HYDROCORTISONE SOD SUCC 100 MG/2ML INJ VIAL IV ONE (15:00)
--- NOTE | 2019-05-03 16:00 | NUR ---
Nutrition Follow-up Notes Wt.: 72.8 kg today. Pt's in isolation room, awake, no signs of distress noted, immediate family member at bedside who provide some additional pertinent information when rounded this morning. 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 Pt stays in care home, on oral diet (Pureed) as well as EN support (not sure about EN formula given) via PEG tube shrimping boat captain and NKFA. Pt's currently NPO on EN support with Glucerna 1.2 Alfred @ 70 ml/hr providing 2016 kcal, 100 gms proteins and 1352 ml free water, tolerates feeding well, no residuals noted by RN this morning. Pt with adequate EN support d/t high initiation rate delivery of concentrated formula aeb current EN infusion meets 84% to 98% of est caloric needs and 105% to 122% of est protein needs. Discussed importance/benefits of EN support while pt's NPO r/t current medical condition and she verbalized understanding. Est. Needs: 2050 kcal to 2400 kcal (25-30 kcal/kgBW), 82 gms to 95 gms pro (1.2-1.4 gms/kgBW d/t severe hypoalbuminemia, wound healing). Will continue to monitor pertinent labs and reassess nutrient need prn Labs: Gluc 121 H, Na 148 H, K 3.4 L, Cl 118 H, BUN 25 H, Ca 7.5 L, ALP 147 H, Tpro 5.9 L, Alb 1.5 L. Skin: Bryson scale 15, mod risk, pt with skin tear on coccyx per activated sludge operator. Pls refer to latest bryologist's notes for further details re: tx plans. Noted pt's on MVI and Asc acid supplements. GI: Pt had 1 BM this morning per activated sludge operator. PES: Altered nutrition related lab values r/t current/chronic medical condition aeb hypernatremia, hyperchloremia, elev. renal labs, hypocalcemia and severe hypoalbuminemia Increased nutrient needs r/t current chronic medical condition aeb Urinary tract infection, Dehydration,Cerebral palsy, severe hypoalbuminemia, NPO with PEG tube Will continue to monitor NPO status, EN tolerance, skin status, pertinent labs and weight trend. F/u in 2 to 3 days. Rec.: 1.) If Albumin continues trending down, consider Prostat 1 pkt BID. 2.) Consider daily MVI with minerals and Asc acid 500 mgs BID prn. 3.) Refer pt's family to CDE/RD for further nutrition educ. and weight monitoring upon discharge. 4.) Continue current plan of care.
--- NOTE | 2019-05-03 16:47 | NUR ---
oral care provided.
[2019-05-03 17:14] VITALS: BP 122/74
--- NOTE | 2019-05-03 19:15 | NUR ---
Opening Shift Note Assumed care of patient, awake and alert. No S/S of distress/SOB or pain. Instructed on POC and to call for assist PRN, will continue to monitor for changes Q1hr and PRN. Side rails up x2. Bed locked in lowest position. Call light within reach.
[2019-05-03] MEDS: Glucerna 1.2 Cal 1Liter BOTTLE GT SCH (19:30)
[2019-05-03 22:00] VITALS: BP 127/72
[2019-05-04] MEDS: PIPERACILLIN-TAZOB 3.375GM 100 ML IV SCH ×4 (00:35→19:03)
[2019-05-04] MEDS: FREE WATER GT SCH ×8 (02:00→22:00)
[2019-05-04] MEDS: LINEZOLID 600MG/300ML 300 ML IV SCH ×2 (05:00→17:11)
[2019-05-04 05:43] VITALS: BP 121/77
[2019-05-04] MEDS: SODIUM BICARBONATE IV SCH (06:16)
[2019-05-04] MEDS: POTASSIUM CHLORIDE IV SCH (06:16)
[2019-05-04] MEDS: D5W 5% IV SCH (06:16)
--- NOTE | 2019-05-04 06:32 | NUR ---
Patient had 2 loose bowel movements throughout the shift
[2019-05-04] MEDS: HYDROCORTISONE SOD SUCC 100 MG/2ML INJ VIAL IV SCH ×3 (07:12→22:00)
[2019-05-04] MEDS: LEVOTHYROXINE SODIUM 50 MCG TAB GT SCH (07:12)
--- NOTE | 2019-05-04 07:34 | NUR ---
Endorsed care to day shift RN.
[2019-05-04 07:43] LABS: Basophils # (auto) 0 uL; Basophils % (auto) 0.1 % (0.0-2.0); Eosinophils # (auto) 0 uL; Eosinophils % (auto) 0.1 % (0.0-7.0); Hematocrit 35.6 % (41.0-53.0); Hemoglobin 11.3 g/dL (13.5-17.5); Lymphocytes # (auto) 0.8 uL; Lymphocytes % (auto) 8.3 % (10.0-50.0); Mean Corpuscular Hemoglobin 28.6 pg (28.0-32.0); Mean Corpuscular Hgb Conc. 31.7 g/dL (32.0-36.0); Mean Corpuscular Volume 90.4 fL (80.0-100.0); Monocytes # (auto) 0.4 uL; Monocytes % (auto) 4.4 % (0.0-12.0); Neutrophils # (auto) 8.7 uL; Neutrophils % (auto) 87.1 % (37.0-80.0); Nucleated Red Blood Cells % 0.1 %; Platelet Count (auto) 233 10^3/uL (140-450); Red Blood Cells 3.95 10^6/uL (4.5-5.90); Red Cell Distribution Width 16.3 % (11.8-14.3)
--- NOTE | 2019-05-04 08:05 | NUR ---
Patient in bed, awake, non-verbal, listening to music on his portable CD player/boom box with CDs at bedside table. Bedbound. On Jarvis catheter, on Glucerna via PEG tube. Bed alarm on.
[2019-05-04 08:09] LABS: Calcium 7.2 mg/dL (8.5-10.1); Potassium 3.3 mmol/L (3.5-5.1)
[2019-05-04 09:00] VITALS: BP 117/69
[2019-05-04] MEDS: MULTIPLE VITAMIN ORAL 15 ML Soln GT SCH ×2 (10:00→10:12)
[2019-05-04] MEDS: ASCORBIC ACID 500 MG TAB GT SCH ×2 (10:00→10:12)
[2019-05-04] MEDS: ENOXAPARIN SOD 40 MG/0.4 ML SYRINGE SC SCH (10:12)
--- NOTE | 2019-05-04 10:13 | NUR ---
Pressure on the PEG Tube noted. Unable to flush with free water.
--- NOTE | 2019-05-04 10:29 | NUR ---
IV pump machine for Glucerna via PEG tube is beeping.
[2019-05-04] MEDS ORDERED: POTASSIUM EFFERVESENT TAB 25 MEQ GT ONE (10:30)
--- NOTE | 2019-05-04 10:31 | NUR ---
Dr. Whipple at bedside. made aware patient is unable to eat by mouth. On Glucerna feeding via PEG tube. Dr. Whipple to put in new orders.
[2019-05-04 12:00] VITALS: BP 114/73
--- NOTE | 2019-05-04 12:30 | NUR ---
Pressure on PEG Tube noted. Charge Nurse Carmen made aware.
--- NOTE | 2019-05-04 13:45 | NUR ---
Charge Nurse Carmen made aware that patient's PEG Tube is not patent. Attempted to flush with warm water, ugashik soda, unsuccessful.
[2019-05-04] MEDS: SODIUM BICARBONATE 650 MG TAB GT SCH ×2 (14:00→22:00)
--- NOTE | 2019-05-04 14:10 | NUR ---
WOUND CARE NOTE: Weekly reevaluation by wound care team. Patient has been on skin integrity rounding due to low Bryson score and skin tear to gluteal cleft. Patient is alert and denies pain. Last Bryson score is 15. Patient is assisting with turning. Skin to gluteal cleft is closed, blanching and intact. No open wounds noted. RECOMMENDATIONS: Nursing to continue with previous wound/skin care orders; wound care team to continue to follow.
--- NOTE | 2019-05-04 14:20 | NUR ---
Informed Dr. Ramos that patient's PEG Tube is not patent. Waiting for MD to call back.
--- NOTE | 2019-05-04 16:50 | NUR ---
Dr. Ramos ordered GI Consult for PEG Tube not patent, Clinimix as per Pharmacy.
[2019-05-04 17:00] VITALS: BP 128/83
[2019-05-04] MEDS ORDERED: CLINIMIX PER PHARMACY 0 ML IV SCH (17:00)
--- NOTE | 2019-05-04 17:00 | NUR ---
Informed Dr. Ramos if patient will be DNR Status. Waiting for MD to call back.
--- NOTE | 2019-05-04 17:15 | NUR ---
Manuel Salgado at bedside for GI Consult. to change the PEG Tube.
[2019-05-04 17:42] LABS: Magnesium 2.4 mg/dL (1.6-2.6)
--- NOTE | 2019-05-04 17:55 | NUR ---
Light pink urine noted on the Jarvis catheter bag (via suprapubic catheter).
--- NOTE | 2019-05-04 17:55 | NUR ---
PEG tube is patent, continue on Glucerna. Manuel Salgado fixed the PEG Tube.
--- NOTE | 2019-05-04 18:00 | NUR ---
Informed Dr. Ramos that PEG Tube fixed by Dr. Beck.
[2019-05-04] MEDS ORDERED: GASTROGRAFIN 30 ML SOL ONE (18:03)
--- NOTE | 2019-05-04 19:00 | NUR ---
Endorsed to product sales representative LAURA Anderson to monitor the patient's light pinkish urine output on the suprapubic catheter, to inform Dr. Ramos.
[2019-05-04] MEDS ORDERED: CLINIMIX PER PHARMACY IV NR (20:00)
--- NOTE | 2019-05-04 20:15 | NUR ---
Hematuria Notified Dr. Ramos. ordered Urine Culture. No further orders. Continue care.
[2019-05-04 21:58] VITALS: BP_SYST 119
[2019-05-05] MEDS: FREE WATER GT SCH ×6 (01:29→21:20)
[2019-05-05] MEDS: PIPERACILLIN-TAZOB 3.375GM 100 ML IV SCH ×4 (01:29→19:08)
[2019-05-05] MEDS: LINEZOLID 600MG/300ML 300 ML IV SCH ×2 (04:46→16:50)
[2019-05-05 05:49] VITALS: BP 116/72
[2019-05-05] MEDS: SODIUM BICARBONATE 650 MG TAB GT SCH ×3 (06:13→21:21)
[2019-05-05] MEDS: LEVOTHYROXINE SODIUM 50 MCG TAB GT SCH (06:13)
[2019-05-05 07:17] LABS: Albumin 1.7 g/dL (3.4-5.0); Calcium 7.6 mg/dL (8.5-10.1); Potassium 3.4 mmol/L (3.5-5.1)
[2019-05-05 07:20] LABS: BUN/Creatinine Ratio 27.8; Bilirubin, Total 0.2 mg/dL (0.2-1.0); Total Protein 6.1 g/dL (6.4-8.2)
--- NOTE | 2019-05-05 07:20 | NUR ---
Opening Shift Note Report received from NOC RN and rounds completed. Patient oriented to this RN and POC. Patient awake, alert, and nodded/ pointed to this nurse in acknowledgement. Personal belongings moved closer to patient and call lopez within reach. Bed rails up x2, and notified to call if needing assistance.
--- NOTE | 2019-05-05 07:25 | NUR ---
Endorsed care to day shift RN.
[2019-05-05 09:00] VITALS: BP 122/77
[2019-05-05] MEDS: ASCORBIC ACID 500 MG TAB GT SCH (09:11)
[2019-05-05] MEDS: ENOXAPARIN SOD 40 MG/0.4 ML SYRINGE SC SCH (09:12)
[2019-05-05] MEDS: MULTIPLE VITAMIN ORAL 15 ML Soln GT SCH (09:12)
[2019-05-05] MEDS: HYDROCORTISONE SOD SUCC 100 MG/2ML INJ VIAL IV SCH ×2 (10:08→21:21)
[2019-05-05] MEDS: POTASSIUM EFFERVESENT TAB 25 MEQ GT SCH (11:31)
[2019-05-05 13:00] VITALS: BP 123/71
[2019-05-05] MEDS ORDERED: MORPHINE SULF INJ 2 MG/ML SYRINGE 1ML IV PRN (14:45)
--- NOTE | 2019-05-05 16:00 | NUR ---
D/C Planning Per consult for Pt to return to [facility]. Contact [facility] Ph:) Fax:) Faxed medical records. Per Bianca from [facility] Pt has been accepted and room will be given upon d/c day. Will arrange transportation upon d/c day.
[2019-05-05 17:00] VITALS: BP 122/76
--- NOTE | 2019-05-05 18:50 | NUR ---
Minimal urine output Patient has only had 125cc urine output with hematuria. Bladder scan showed >999. Patient has distended abdomen, but not showing signs of discomfort. Dr. Ramos answer machine is full and answering service not going through. Hospitalist paged with return call from Sarabjit SHEETS. Order recieved to get abdominal ultrasound of bladder r/o suprapubic catheter displacement.
--- NOTE | 2019-05-05 19:30 | NUR ---
Opening Shift Note Assumed care of patient, awake listening to music. Patient is aphasic and communicates by pointing and nodding. No S/S of distress/SOB or pain. Instructed on POC and to call for assist PRN, will continue to monitor for changes Q1hr and PRN. Side rails up x2. Bed locked in lowest position. Call light within reach. 600 ml hematuria noted on schrader bag.
[2019-05-05 22:00] VITALS: BP 110/66
[2019-05-06] MEDS: PIPERACILLIN-TAZOB 3.375GM 100 ML IV SCH ×4 (00:09→19:18)
[2019-05-06] MEDS: FREE WATER GT SCH ×6 (02:01→21:31)
--- NOTE | 2019-05-06 03:01 | NUR ---
Rounds Patient in bed asleep with no signs of distress/sob/pain. Will continue to monitor Q1HPRN. Light red Urine flowing freely from suprapubic catheter.
[2019-05-06] MEDS: LINEZOLID 600MG/300ML 300 ML IV SCH ×2 (04:31→17:27)
[2019-05-06 06:00] VITALS: BP 127/67
[2019-05-06] MEDS: SODIUM BICARBONATE 650 MG TAB GT SCH ×3 (06:13→21:30)
[2019-05-06] MEDS: LEVOTHYROXINE SODIUM 50 MCG TAB GT SCH (06:13)
--- NOTE | 2019-05-06 07:30 | NUR ---
Opening Shift Note Assumed care of patient, awake and alert. No S/S of distress/SOB or pain. Instructed on POC and to call for assist PRN, will continue to monitor for changes Q1hr and PRN. PT ABLE TO DEMONSTRATE PROPER USE OF CALL LIGHT. NODS AND SHAKES HIS HEAD IN RESPONSE TO A YES OR NO QUESTIONS. PEG TUBE PATENT AND RUNNING.
[2019-05-06 08:52] VITALS: BP 141/90
[2019-05-06] MEDS: ASCORBIC ACID 500 MG TAB GT SCH (10:17)
[2019-05-06] MEDS: POTASSIUM EFFERVESENT TAB 25 MEQ GT SCH (10:18)
[2019-05-06] MEDS: HYDROCORTISONE SOD SUCC 100 MG/2ML INJ VIAL IV SCH (10:18)
[2019-05-06] MEDS: ENOXAPARIN SOD 40 MG/0.4 ML SYRINGE SC SCH (10:18)
[2019-05-06] MEDS: MULTIPLE VITAMIN ORAL 15 ML Soln GT SCH (10:18)
[2019-05-06 12:12] LABS: Albumin 1.7 g/dL (3.4-5.0); Calcium 7.8 mg/dL (8.5-10.1); Potassium 3.9 mmol/L (3.5-5.1)
[2019-05-06 12:20] LABS: BUN/Creatinine Ratio 24.7; Bilirubin, Total 0.2 mg/dL (0.2-1.0)
[2019-05-06 12:52] VITALS: BP 127/80
--- NOTE | 2019-05-06 14:42 | NUR ---
Nutrition Follow-up Notes Wt.: 72.8 kg today. Pt's in isolation room, asleep, no signs of distress noted when rounded this morning. Pt's currently NPO on EN support with Glucerna 1.2 Alfred @ 70 ml/hr via pEG tube providing 2016 kcal, 100 gms proteins and 1352 ml free water, tolerates feeding well, no residuals noted by RN this morning. Pt with adequate EN support d/t high initiation rate delivery of concentrated formula aeb current EN infusion meets 84% to 98% of est caloric needs and 105% to 122% of est protein needs. Est. Needs: 2050 kcal to 2400 kcal (25-30 kcal/kgBW), 82 gms to 95 gms pro (1.2-1.4 gms/kgBW d/t severe hypoalbuminemia, wound healing). Will continue to monitor pertinent labs and reassess nutrient need prn Labs: Gluc 116 H, Na 147 H, Cl 115 H, Ca 7.8 L, ALP 123 H, Tpro 6.0 L, Alb 1.7 L. Skin: Bryson scale 12, high risk, pt with skin tear on coccyx per proposal writer. Pls refer to latest appliance worker's notes for further details re: tx plans. Noted pt's on MVI and Asc acid supplements. GI: Pt had 3x BM yesterday per proposal writer. PES: Altered nutrition related lab values r/t current/chronic medical condition aeb hypernatremia, hyperchloremia, elev. renal labs, hypocalcemia and severe hypoalbuminemia Increased nutrient needs r/t current chronic medical condition aeb Urinary tract infection, Dehydration,Cerebral palsy, severe hypoalbuminemia, NPO with PEG tube Will continue to monitor NPO status, EN tolerance, skin status, pertinent labs and weight trend. F/u in 2 to 3 days. Rec.: 1.) If Albumin continues trending down, consider Prostat 1 pkt BID. 2.) Consider daily MVI with minerals and Asc acid 500 mgs BID prn. 3.) Refer pt's family to CDE/RD for further nutrition educ. and weight monitoring upon discharge. 4.) Continue current plan of care.
[2019-05-06 16:52] VITALS: BP 132/81
--- NOTE | 2019-05-06 19:02 | NUR ---
CLOSING NOTES PT RESTING IN BED. NO DISTRESS NOTED. DENIES PAIN. PT ABLE TO UNDERSTAND SIMPLE QUESTIONS AND RESPONDS WITH GESTURES BUT ALSO TRIES TO VERBALIZE RESPONSE SOMETIMES. SPEECH IS PILLO GARBLED. SPOKE TO PT'S SISTER THIS AFTERNOON AND UPDATED HER WITH PLAN OF CARE. PER MD POSSIBLE DC TOMORROW.
--- NOTE | 2019-05-06 19:25 | NUR ---
Opening Shift Note Received report from jolie Vallecillo RN. Assumed care of patient, awake and alert. Patient respond with garbled speech and gestures most times. No S/S of distress/SOB or pain. Instructed on POC and to call for assist PRN, will continue to monitor for changes Q1hr and PRN. Bed placed in lowest position, bed alarm turn on and call light within reach.
[2019-05-06 22:00] VITALS: BP 140/74
[2019-05-07] MEDS: PIPERACILLIN-TAZOB 3.375GM 100 ML IV SCH ×4 (00:46→18:08)
[2019-05-07] MEDS: FREE WATER GT SCH ×6 (03:16→21:59)
[2019-05-07 05:00] VITALS: BP 119/69
[2019-05-07] MEDS: LINEZOLID 600MG/300ML 300 ML IV SCH ×2 (05:20→17:02)
[2019-05-07 05:50] LABS: Albumin 1.7 g/dL (3.4-5.0); BUN/Creatinine Ratio 24.4; Calcium 7.5 mg/dL (8.5-10.1); Potassium 3.7 mmol/L (3.5-5.1)
[2019-05-07 05:54] LABS: Bilirubin, Total 0.1 mg/dL (0.2-1.0); Total Protein 5.8 g/dL (6.4-8.2)
[2019-05-07] MEDS: SODIUM BICARBONATE 650 MG TAB GT SCH ×3 (05:54→21:59)
[2019-05-07] MEDS: LEVOTHYROXINE SODIUM 50 MCG TAB GT SCH (06:09)
--- NOTE | 2019-05-07 07:30 | NUR ---
Opening Shift Note Assumed care of patient, awake and alert. No S/S of distress/SOB or pain. Instructed on POC and to call for assist PRN, will continue to monitor for changes Q1hr and PRN. Fall precautions in place per safety protocol.
[2019-05-07 09:00] VITALS: BP 125/76
[2019-05-07] MEDS: HYDROCORTISONE SOD SUCC 100 MG/2ML INJ VIAL IV SCH (09:52)
[2019-05-07] MEDS: POTASSIUM EFFERVESENT TAB 25 MEQ GT SCH (09:52)
[2019-05-07] MEDS: ASCORBIC ACID 500 MG TAB GT SCH (09:52)
[2019-05-07] MEDS: ENOXAPARIN SOD 40 MG/0.4 ML SYRINGE SC SCH (09:53)
[2019-05-07] MEDS: MULTIPLE VITAMIN ORAL 15 ML Soln GT SCH (09:57)
--- NOTE | 2019-05-07 10:19 | NUR ---
PT SEEN BY DR. VEGA AWARE OF THE SODIUM 147,HE ORDERED D5W AT 60 MLS AND TO GIVE FREE WATER VIA PEG TUBE.
[2019-05-07] MEDS: D5W 5% 1,000 ML IV SCH (11:52)
[2019-05-07 13:00] VITALS: BP 122/71
[2019-05-07 17:20] VITALS: BP 127/76
[2019-05-07 21:29] VITALS: BP 124/73
[2019-05-08] MEDS: PIPERACILLIN-TAZOB 3.375GM 100 ML IV SCH ×3 (00:36→13:20)
[2019-05-08] MEDS: LINEZOLID 600MG/300ML 300 ML IV SCH (04:33)
[2019-05-08 05:02] VITALS: BP 111/70
[2019-05-08 06:12] LABS: Albumin 1.8 g/dL (3.4-5.0); Calcium 7.2 mg/dL (8.5-10.1); Potassium 4.2 mmol/L (3.5-5.1)
[2019-05-08] MEDS: SODIUM BICARBONATE 650 MG TAB GT SCH ×2 (06:14→13:20)
[2019-05-08] MEDS: FREE WATER GT SCH ×4 (06:15→13:20)
[2019-05-08] MEDS: LEVOTHYROXINE SODIUM 50 MCG TAB GT SCH (06:15)
[2019-05-08 06:16] LABS: BUN/Creatinine Ratio 20.5; Bilirubin, Total 0.2 mg/dL (0.2-1.0); Total Protein 5.6 g/dL (6.4-8.2)
[2019-05-08] MEDS: D5W 5% 1,000 ML IV SCH (06:19)
--- NOTE | 2019-05-08 07:25 | NUR ---
Opening Note Received report from grinding room supervisor RN. Patient has a peg tube, with feedings @70mls hr. Patient has a suprapubic catheter patient and draining. Patient is on room air, respirations even and unlabored. Reviewed plan of care. Bed in low and locked position, call light within reach, be alarm on for safety. Will continue to monitor Q1 hour and PRN.
--- NOTE | 2019-05-08 07:49 | NUR ---
ROUNDS PATIENT HAD A SOFT AND WATER BROWN BOWEL MOVEMENT. STOOL SAMPLE SPECIMEN SENT TO LAB
[2019-05-08 09:00] VITALS: BP 124/77
[2019-05-08] MEDS: HYDROCORTISONE SOD SUCC 100 MG/2ML INJ VIAL IV SCH (10:11)
[2019-05-08] MEDS: ENOXAPARIN SOD 40 MG/0.4 ML SYRINGE SC SCH (10:12)
[2019-05-08] MEDS: POTASSIUM EFFERVESENT TAB 25 MEQ GT SCH (10:13)
[2019-05-08] MEDS: ASCORBIC ACID 500 MG TAB GT SCH (10:14)
[2019-05-08] MEDS: MULTIPLE VITAMIN ORAL 15 ML Soln GT SCH (10:18)
--- NOTE | 2019-05-08 12:10 | NUR ---
Nutrition Follow-up Notes Wt.: 80.0 kg today. Pt's in isolation room, awake, no signs of distress noted when rounded earlier. Pt's currently NPO on EN support with Glucerna 1.2 Alfred @ 70 ml/hr via PEG tube providing 2016 kcal, 100 gms proteins and 1352 ml free water, tolerates feeding well, no residuals noted by RN this morning. Pt with adequate EN support d/t high initiation rate delivery of concentrated formula aeb current EN infusion meets 84% to 98% of est caloric needs and 105% to 122% of est protein needs. Est. Needs: 2050 kcal to 2400 kcal (25-30 kcal/kgBW), 82 gms to 95 gms pro (1.2-1.4 gms/kgBW d/t severe hypoalbuminemia, wound healing). Will continue to monitor pertinent labs and reassess nutrient need prn Labs: Cl 114 H, Ca 7.2 L, ALP 121 H, Tpro 5.6 L, Alb 1.8 L. Skin: Bryson scale 12, high risk, pt with skin tear on coccyx per commanding officer homicide squad. Pls refer to latest forensic specialist's notes for further details re: tx plans. Noted pt's on MVI and Asc acid supplements. GI: Pt had 3 BM this morning per commanding officer homicide squad. PES: Altered nutrition related lab values r/t current/chronic medical condition aeb hypernatremia, hyperchloremia, elev. renal labs, hypocalcemia and severe hypoalbuminemia Increased nutrient needs r/t current chronic medical condition aeb Urinary tract infection, Dehydration,Cerebral palsy, severe hypoalbuminemia, NPO with PEG tube Will continue to monitor NPO status, EN tolerance, skin status, pertinent labs and weight trend. F/u in 2 to 3 days. Rec.: 1.) If Albumin continues trending down, consider Prostat 1 pkt BID. 2.) Refer pt's family to CDE/RD for further nutrition educ. and weight monitoring upon discharge. 3.) Continue current plan of care.
[2019-05-08 13:00] VITALS: BP 118/69
--- NOTE | 2019-05-08 13:00 | NUR ---
Dr. Ramos at bedside Updating patient on plan of care. Patient to be transferred back to SNF, awaiting social work program coordinator. Will continue to monitor Q1 hour and PRN.
--- NOTE | 2019-05-08 14:11 | NUR ---
D/C Planning Followed up Call to [facility] Ph:( [phone]) spoke to Bianca. Advised Bianca from [facility] Pt will be discharging today. Per Bianca from [facility] Pt has been accepted to Room 43[address] accepting MD Dr. Ramos. Contact [facility] Ph:) spoke to Dewayne. Per Dewayne transportation potato picker will be 17:30 via gurney with oxygen. Informed LAURA Mukherjee who is covering for RN Summer. Addendum: 05/08/19 at 1415 by JINNY SANTACRUZ Amended: Links added.
[2019-05-08 14:58] VITALS: BP 118/69
--- NOTE | 2019-05-08 15:35 | NUR ---
Called patient sister Mary Updated on patient transfer to [facility]. Patient going to room 43B. Sister verbalized understanding. Will continue to monitor Q1 hour and PRN.
--- NOTE | 2019-05-08 16:02 | NUR ---
MRSA swab collected and sent to lab
--- NOTE | 2019-05-08 16:05 | NUR ---
Called report to Arianne Matute Report given to Bel Woodard RN.
--- NOTE | 2019-05-08 16:10 | NUR ---
Transfer to [facility] Patient transferred to [facility]. Transported by [facility] transportation. Discharge instructions given as ordered. Encourage to follow up with PMD as instructed. All questions and concerns addressed. Medication reconcile form completed and given to transportation. Patient is transferred with midline for continued antibiotics. Patient has a suprapubic catheter in place,d patent and draining. No signs or symptoms of distress noted at this time.
== END 2019-05-08 16:10 | DRG 871 ==
LOC: EDBD 23:40 → ER 23:46 → OVERFLOW 23:47 → ICU WEST 04-26 18:20 → TELE-CENTR 04-29 21:20
PROVIDERS: ADMIT Internal Medicine; ATTEND Internal Medicine
PROC: 0D20XUZ Change Feeding Device in Upper Intestinal Tract, External Approach (ICD-10-PCS; principal; 2019-04-26)
DX: A41.52 Sepsis due to Pseudomonas (principal); N17.0 Acute kidney failure with tubular necrosis; E43 Unspecified severe protein-calorie malnutrition; R65.21 Severe sepsis with septic shock; E87.0 Hyperosmolality and hypernatremia; N13.6 Pyonephrosis; K94.23 Gastrostomy malfunction; E87.2 Acidosis; B95.62 Methicillin resistant Staphylococcus aureus infection as the cause of diseases classified elsewhere; B96.5 Pseudomonas (aeruginosa) (mallei) (pseudomallei) as the cause of diseases classified elsewhere; B96.89 Other specified bacterial agents as the cause of diseases classified elsewhere; E03.9 Hypothyroidism, unspecified; A41.1 Sepsis due to other specified staphylococcus; I50.9 Heart failure, unspecified; E11.9 Type 2 diabetes mellitus without complications; G80.8 Other cerebral palsy; E86.0 Dehydration; R13.10 Dysphagia, unspecified; E78.5 Hyperlipidemia, unspecified; F41.9 Anxiety disorder, unspecified; Y83.8 Other surgical procedures as the cause of abnormal reaction of the patient, or of later complication, without mention of misadventure at the time of the procedure; N25.89 Other disorders resulting from impaired renal tubular function; N21.0 Calculus in bladder; N31.9 Neuromuscular dysfunction of bladder, unspecified; E87.6 Hypokalemia; N32.3 Diverticulum of bladder; D63.8 Anemia in other chronic diseases classified elsewhere; Z68.23 Body mass index [BMI] 23.0-23.9, adult; Z88.8 Allergy status to other drugs, medicaments and biological substances; Z87.440 Personal history of urinary (tract) infections; Z95.0 Presence of cardiac pacemaker; Y92.89 Other specified places as the place of occurrence of the external cause; Z74.01 Bed confinement status; Z79.899 Other long term (current) drug therapy
CPT/HCPCS: 36415; 71045; 74018; 74177; 76705; 80048; 80053; 80202; 81001; 82150; 82306; 82570; 82962; 83605; 83690; 83735; 83935; 83970; 84100; 84156; 84300; 84550; 85025; 85610; 85730; 87040; 87045; 87077; 87081; 87086; 87088; 87186; 87427; 87804; 93005; 93306; 94761; 96365; 96366; 96367; A4565; G0378; J0696; J1953; J2543; P9047

== ENCOUNTER 2019-06-29 19:42 | Emergency (ER) | payer MEDICARE, OTHER ==
[~2019-06-29] VITALS: Ht 177.8 cm; Wt 68.0 kg
[~2019-06-29 19:42] MED LIST changes: -MERO1INJ IV; +MERO1INJ32 IV
[2019-06-30] MEDS ORDERED: GASTROGRAFIN 30 ML SOL ONE ×2 (01:04→01:12)
[2019-06-30] MEDS ORDERED: SODIUM CHLORIDE 0.9% 1,000 ML IV ONE (04:15)
[2019-06-30] MEDS: MIDODRINE HCL 10 MG TAB PO ONE ×2 (09:52→10:02)
[2019-06-30 10:10] VITALS: BP 100/46
== END 2019-06-30 10:18 | disposition home or self-care (01) ==
LOC: EDBD 19:42 → ER 19:44
DX: K94.23 Gastrostomy malfunction (principal); E11.9 Type 2 diabetes mellitus without complications; I50.9 Heart failure, unspecified; Z79.899 Other long term (current) drug therapy; Z95.0 Presence of cardiac pacemaker
CPT/HCPCS: 43762; 74018; 99284; Q9963